=== PATIENT | female | born 1985 | race Caucasian/White ===

== ENCOUNTER 2021-04-14 22:51 | Emergency (ER) | payer MEDICAID ==
[~2021-04-14] VITALS: Ht 157.5 cm; Wt 61.8 kg
[~2021-04-14 22:51] MED LIST: CYCL-394 PO; [UNRECOGNIZED DRUG - REMARK]
[2021-04-14 23:03] VITALS: BP 119/78
[2021-04-15] MEDS ORDERED: clindamycin 150mg capsule PO ONE (01:00)
[2021-04-15] MEDS ORDERED: CLIN300C63 PO (01:06)
[2021-04-15] MEDS ORDERED: GRIS500T7 PO (01:06)
== END 2021-04-15 01:55 | disposition home or self-care (01) ==
LOC: ER 22:52
DX: L03.317 Cellulitis of buttock (principal); B35.0 Tinea barbae and tinea capitis; R51.9 Headache, unspecified; Z88.2 Allergy status to sulfonamides; Z79.2 Long term (current) use of antibiotics; Z79.899 Other long term (current) drug therapy
CPT/HCPCS: 99283